=== PATIENT | male | born 1960 | race Hispanic/Latino ===

== ENCOUNTER 2019-08-20 09:00 | Inpatient (IN) | payer OTHER ==
[~2019-08-20] VITALS: Ht 177.8 cm; Wt 104.6 kg
[2019-08-20 10:51] VITALS: BP 108/71
[2019-08-20] MEDS ORDERED: APIX5TAB PO (11:51)
[2019-08-20] MEDS ORDERED: MVIT PO (11:51)
[2019-08-20] MEDS ORDERED: FENO145T26 PO (11:51)
[2019-08-20] MEDS ORDERED: CETI10TA86 PO (11:51)
[2019-08-20] MEDS ORDERED: ATOR10TA69 PO (11:51)
[2019-08-20] MEDS ORDERED: NIAC500C3 PO ×2 (11:51)
[2019-08-20] MEDS ORDERED: SELE200C PO (11:51)
[2019-08-20] MEDS ORDERED: FISH1CAP27 PO ×2 (11:51)
[2019-08-22] VITALS (22 sets, daily range): BP systolic 99–130; BP diastolic 58–83
[2019-08-22] MEDS ORDERED: LACTATED RINGERS 1000ML 1,000 ML IV ONE (08:24)
[2019-08-22] MEDS: CEFAZOLIN SODIUM 1 GM VIAL ONE ×4 (08:33→15:16)
[2019-08-22] MEDS ORDERED: METOCLOPRAMIDE 10 MG/2 ML VIAL ONE (08:45)
[2019-08-22] MEDS ORDERED: ACETAMINOPHEN EXTRA STRENGTH 500 MG TABLET ONE (08:45)
[2019-08-22] MEDS ORDERED: KETOROLAC TROMETHAMINE 15MG/ML ONE (08:46)
[2019-08-22] MEDS ORDERED: CELECOXIB 200 MG CAP ONE (08:46)
--- NOTE | 2019-08-22 09:02 | NUR ---
POTENTIAL FOR INFECTION: SHAVING TO LEFT KNEE / LEFT LEG PER JORGE ALBERTO ROY FOLLOWED BY WIPING WITH HYACINTH: 2% CHLORHEXIDINE GLUCONATE CLOTH PATIENTS PRE-OP SKIN PREP.
[2019-08-22] MEDS ORDERED: CELECOXIB 200 MG CAP PO SCH (09:30)
[2019-08-22] MEDS ORDERED: TRANEXAMIC ACID 1000MG/10ML IJ SCH (09:30)
[2019-08-22] MEDS ORDERED: METOCLOPRAMIDE 10 MG/2 ML VIAL IVP SCH (09:30)
[2019-08-22] MEDS ORDERED: ACETAMINOPHEN EXTRA STRENGTH 500 MG TABLET PO SCH (09:30)
[2019-08-22] MEDS ORDERED: ONDANSETRON HCL 4 MG/2 ML VIAL ONE (12:07)
[2019-08-22] MEDS ORDERED: LIDOCAINE PF 2% 5ML ABBOJECT ONE (12:07)
[2019-08-22] MEDS ORDERED: SUCCINYLCHOLINE 200MG/10ML SYR ONE (12:07)
[2019-08-22] MEDS ORDERED: NEOSTIGMINE 5MG/5ML SYR IV ONE (12:08)
[2019-08-22] MEDS ORDERED: DEXAMETHASONE SOD PHOSPHATE 10MG/ML 1ML VIAL ONE (12:08)
[2019-08-22] MEDS ORDERED: MIDAZOLAM HCL 1 MG/ML 2ML VIAL ONE (12:08)
[2019-08-22] MEDS ORDERED: GLYCOPYRROLATE 1 MG/5 ML SYRINGE ONE ×2 (12:08→15:31)
[2019-08-22] MEDS ORDERED: PROPOFOL 10 MG/ML 20ML VIAL IV ONE (12:08)
[2019-08-22] MEDS ORDERED: ROCURONIUM 10MG/1ML SYR 10 MG/ML ML ONE (12:09)
[2019-08-22] MEDS ORDERED: FENTANYL CITRATE PF 50 MCG/1 ML 2ML VIAL ONE ×3 (12:09→15:30)
[2019-08-22] MEDS ORDERED: ROPIVACAINE 0.5% 5MG/ML 30ML IJ ONE (12:11)
[2019-08-22] MEDS ORDERED: TRANEXAMIC ACID 1000MG/10ML ONE (14:44)
[2019-08-22] MEDS ORDERED: KETOROLAC TROMETHAMINE 15MG/ML IV PRN (15:30)
[2019-08-22] MEDS ORDERED: OXYCODONE HCL 5 MG TAB PO PRN (15:30)
[2019-08-22] MEDS ORDERED: TRAMADOL HCL 50 MG TABLET PO PRN (15:30)
[2019-08-22] MEDS ORDERED: DiphenhydrAMINE HCL 50 MG/ML VIAL IVP PRN (15:30)
[2019-08-22] MEDS ORDERED: POTASSIUM CHLORIDE 20MEQ/100ML 100 ML IV PRN (15:30)
[2019-08-22] MEDS ORDERED: FERROUS FUMARATE 324 MG TABLET PO PRN (15:30)
[2019-08-22] MEDS ORDERED: POTASSIUM CHLORIDE 20 MEQ ERTAB PO PRN (15:30)
[2019-08-22] MEDS ORDERED: POTASSIUM CHLORIDE 10% ELIXIR 20 MEQ/15 ML UDCUP PO PRN (15:30)
[2019-08-22] MEDS ORDERED: ONDANSETRON HCL 4 MG/2 ML VIAL IVP PRN (15:30)
[2019-08-22] MEDS ORDERED: CALCIUM CARBONATE 500 MG TABLET PO PRN (15:30)
[2019-08-22] MEDS ORDERED: LIDOCAINE HCL-MPF 1% 2ML VIAL IV PRN (15:30)
[2019-08-22] MEDS: ACETAMINOPHEN EXTRA STRENGTH 500 MG TABLET PO SCH ×2 (15:30→20:27)
[2019-08-22] MEDS ORDERED: MEPERIDINE-PF 25 MG/ML SYG ONE (16:04)
--- NOTE | 2019-08-22 17:02 | NUR ---
[facility] INITIAL & REFERRAL MET W/ PATIENTS FOR DISCHARGE PLANNING-- PAINTER HERRERA W SPOU[facility] WHO WILL PROVIDE TRANSPORT. [facility]IENT GOES TO [facility]- PREVIOUSLY INDEPENDENT, NO DME, DOS NOT DRIVE, DCP IS HOME , TIFFANIE SIGNED FOR DME AND HH THAT [facility] WILL SENT UP, WILL SEND REFERRAL AFTER PT NOTES ARE DONE Addendum: 08/23/19 at 1633 by DILCIA COSME RN CM Amended: Links added.
[2019-08-22] MEDS: SODIUM CHLORIDE 0.9% 1000ML 1,000 ML IV SCH (17:15)
[2019-08-22] MEDS: OXYCODONE HCL 5 MG TAB PO PRN ×2 (17:15→23:37)
[2019-08-22] MEDS ORDERED: POTASSIUM CHLORIDE 20MEQ/100ML 100 ML IV ONE (18:34)
[2019-08-22] MEDS: ASPIRIN 81MG TAB.CHEW PO SCH (20:24)
[2019-08-22] MEDS: CEFAZOLIN SODIUM 1 GM VIAL IVP SCH (20:25)
[2019-08-22] MEDS: FAMOTIDINE 20MG TAB 20 MG TAB PO SCH (20:26)
[2019-08-22] MEDS: CELECOXIB 200 MG CAP PO SCH (20:26)
[2019-08-22] MEDS: PREGABALIN 25 MG CAP PO SCH (20:26)
[2019-08-22] MEDS ORDERED: NON-FORMULARY MEDICATION 1 EACH (Cetirizine HCl 10 MG) PO SCH (21:00)
[2019-08-22] MEDS: CETIRIZINE HCL 5 MG TABLET PO SCH (21:00)
[2019-08-22] MEDS ORDERED: NIACIN 1000 MG PO SCH (21:00)
[2019-08-22] MEDS: NIACIN 1000 MG PO SCH (21:00)
--- NOTE | 2019-08-22 21:00 | NUR ---
ACTIVITY SAT PATIENT UP AT BEDSIDE, WITH TOES TOUCHING ON FLOOR X 10 MINUTES, TOLERATED WELL, BACK TO BED, TEACH PATIENT PLAN OF CARE AND EXPECTED OUTCOME, PATIENT VERBALIZES UNDERSTANDING VIA TEACH BACK
[2019-08-23] MEDS: SODIUM CHLORIDE 0.9% 1000ML 1,000 ML IV SCH ×2 (00:18→11:17)
[2019-08-23 03:30] VITALS: BP 103/66
[2019-08-23 04:14] LABS: HEMATOCRIT 33.7 % (42-54); MEAN CORPUSCULAR HEMOGLOBIN 29.5 pg (27.0-33.0); MEAN CORPUSCULAR HGB CONC 33.2 g/dL (32.0-36.0); MEAN CORPUSCULAR VOLUME 88.7 fL (79-99); PLATELET COUNT (AUTO) 219 K/uL (130-400); WHITE BLOOD COUNT (AUTO) 14.3 K/uL (4.8-10.8)
[2019-08-23] MEDS: CEFAZOLIN SODIUM 1 GM VIAL IVP SCH (04:30)
[2019-08-23] MEDS: ACETAMINOPHEN EXTRA STRENGTH 500 MG TABLET PO SCH ×3 (06:44→23:14)
[2019-08-23 08:08] VITALS: BP 96/65
[2019-08-23] MEDS: PREGABALIN 25 MG CAP PO SCH ×2 (08:18→19:53)
[2019-08-23] MEDS: APIXABAN 5 MG TABLET PO SCH ×2 (08:18→19:53)
[2019-08-23] MEDS: CELECOXIB 200 MG CAP PO SCH ×2 (08:18→19:53)
[2019-08-23] MEDS: POLYETHYLENE GLYCOL 3350 17 GM POWD.PACK PO SCH (08:20)
[2019-08-23] MEDS: ASPIRIN 81MG TAB.CHEW PO SCH ×2 (08:20→19:53)
[2019-08-23] MEDS: NIACIN 500 MG PO SCH (08:20)
[2019-08-23] MEDS: FAMOTIDINE 20MG TAB 20 MG TAB PO SCH ×2 (08:21→19:17)
[2019-08-23] MEDS ORDERED: FENOFIBRATE NANOCRYSTALLIZED 145 MG TAB PO SCH (09:00)
[2019-08-23] MEDS ORDERED: NIACIN 500 MG PO SCH (09:00)
[2019-08-23 11:27] VITALS: BP 99/58
--- NOTE | 2019-08-23 16:25 | NUR ---
spoke at length on phone to yue at [place] RE dressing change orders [place] required ++ documentation re dressing change orders, sent and verified with Yue. should have HH name by tomorrow am Addendum: 08/23/19 at 1627 by DILCIA COSME RN CM Amended: Links added.
[2019-08-23 16:38] VITALS: BP 98/60
[2019-08-23 19:43] VITALS: BP 102/64
[2019-08-23] MEDS ORDERED: ATORVASTATIN CALCIUM 10 MG TABLET ONE (19:51)
[2019-08-23] MEDS: CETIRIZINE HCL 5 MG TABLET PO SCH (19:53)
[2019-08-23] MEDS: NIACIN 1000 MG PO SCH (19:53)
[2019-08-23] MEDS ORDERED: ATORVASTATIN CALCIUM 10 MG TABLET PO SCH (21:00)
[2019-08-23] MEDS: OXYCODONE HCL 5 MG TAB PO PRN (21:09)
[2019-08-23 23:04] VITALS: BP 117/67
[2019-08-24 03:45] VITALS: BP 97/66
[2019-08-24] MEDS: ACETAMINOPHEN EXTRA STRENGTH 500 MG TABLET PO SCH ×2 (05:48→17:08)
[2019-08-24 08:00] VITALS: BP 104/61
[2019-08-24] MEDS: OXYCODONE HCL 5 MG TAB PO PRN ×2 (08:06→12:26)
[2019-08-24] MEDS: FAMOTIDINE 20MG TAB 20 MG TAB PO SCH (09:00)
[2019-08-24] MEDS: NIACIN 500 MG PO SCH (09:00)
[2019-08-24] MEDS: PREGABALIN 25 MG CAP PO SCH (09:17)
[2019-08-24] MEDS: APIXABAN 5 MG TABLET PO SCH (09:18)
[2019-08-24] MEDS: POLYETHYLENE GLYCOL 3350 17 GM POWD.PACK PO SCH (09:18)
[2019-08-24] MEDS: ASPIRIN 81MG TAB.CHEW PO SCH (09:18)
[2019-08-24] MEDS: CELECOXIB 200 MG CAP PO SCH (09:18)
[2019-08-24 12:00] VITALS: BP 117/73
--- NOTE | 2019-08-24 13:00 | NUR ---
DC PLANNING WITH JOEY FROM [place] SPOKE TO [facility] FROM [facility]- [facility] TODAY SHE STATED SHE EXPECTED TO HAVE THE HH NAME BY THIS AFTERNOON, BUT THE DME "YOU WILL PROBABLY HAVE TO LOAN YOUR WKR TO THE PATIENT' 'THE [facility] MD WAS WORKING ON THE REFERAL THIS AM, BUT HE MAY NOT HAVE IT READY BY 430, HE HAS TO SEE PATIENTS TOO" SPOUSE ASKING FOR THE SCRIPTS TIMELY SO THAT SHE CAN GO TECHNICAL OPERATIONS MANAGER AT THE [facility]. RELAYED THE INFO THAT THE PATIENT MAY HAVE TO BE GIVEN OUR WKR FOR THE WEEKEND, AND THIS REQUEST. NICK AWARE AND WILL PASS ON TO DR. PLEITEZ
[2019-08-24] MEDS ORDERED: HYDR-4457 PO (13:28)
[2019-08-24 16:00] VITALS: BP 114/73
--- NOTE | 2019-08-24 17:15 | NUR ---
[facility] ATTEMPTED [facility] TO CALL [facility] BETWEEN 4 PM AND 1700. AT 1700 WENT TO ROOM TO TELL THE PATIENT THAT I DID NOT HAVE A HH NAME FOR THEM WAS ADVISED BY PATIENT THAT [facility] HAD CALLED THEM TO LET THEM KNOW THAT THEY WOULD BE SERVICING THE PATIENT. ATTEMPTED AGAIN TO CALL [facility]- JOEY, NO ANSWER. CALL TO [facility], CONFIRMED THEY WOULD SEE THE PATIENT. REMINDED THE PT THAT THE DME WOULD TAKE UNTIL TUESDAY TO BE PROCESSED, BUT THEY COULD BORROW THE WALKER.
--- NOTE | 2019-08-24 18:43 | NUR ---
As per pt admission database, pt already rec'd flu shot this season. Addendum: 08/24/19 at 1847 by JOEY BILLINGSLEY RN RN Amended: Links added.
--- NOTE | 2019-08-24 19:06 | NUR ---
DISCHARGE DISCHARGE INSTRUCTIONS GIVEN TO PATIENT AND PATIENTS , BOTH VERBALIZE UNDERSTANDING VIA TEACH BACK
--- NOTE | 2019-08-24 19:06 | NUR ---
DISCHARGE PATIENT/SPOUSE GIVEN DISCHARGE INSTRUCTIONS VIA TEACH BACK BY KRISHNA FISHER. 20G PIV TO LFA, TIP INTACT. RX GIVEN TO PATIENT PRIOR TO DISCHARGE. SPOUSE FILLED RX FOR NORCO. DRESSING TO LEFT KNEE TO BE REMOVED ON 08/29/19. REPORT GIVEN TO KRISHNA WOOD FROM [facility]. PATIENT TO FOLLOW UP DR. PLEITEZ ON 09/12/19 AT 1015. PATIENT STABLE AT THIS TIME.
--- NOTE | 2019-08-24 19:25 | NUR ---
DISCHARGE DISCHARGE HOME VIA W/C ACCOMPANIED BY PATIENTS , PAIN LEVEL UPON DISHCARGE 0, DRESSING LEFT KNEE WITH SEUN DRESSING D/I WITH NEGATIVE PRESSURE FLASHING GREEN
[2019-08-24] MEDS ORDERED: FENOFIBRATE NANOCRYSTALLIZED 145 MG TAB PO SCH (21:00)
[2019-08-25] MEDS ORDERED: BISACODYL 10 MG SUPP.RECT RC PRN (15:30)
== END 2019-08-24 19:27 | disposition home health service (06) | DRG 470 ==
LOC: DAHIP 08-22 07:08 → 4BH 08-22 16:41
PROVIDERS: ADMIT Orthopaedic Surgery; ATTEND Orthopaedic Surgery
PROC: 0SRD0J9 Replacement of Left Knee Joint with Synthetic Substitute, Cemented, Open Approach (ICD-10-PCS; principal; 2019-08-22 13:00)
PROC: 3E0T3BZ Introduction of Anesthetic Agent into Peripheral Nerves and Plexi, Percutaneous Approach (ICD-10-PCS; 2019-08-22 13:00)
DX: M17.12 Unilateral primary osteoarthritis, left knee (principal); E78.5 Hyperlipidemia, unspecified; G47.00 Insomnia, unspecified; G89.29 Other chronic pain; Z83.3 Family history of diabetes mellitus; Z86.711 Personal history of pulmonary embolism; Z87.891 Personal history of nicotine dependence; Z80.9 Family history of malignant neoplasm, unspecified; Z79.01 Long term (current) use of anticoagulants
CPT/HCPCS: 36415; 80048; 85027; 87641; 96374; 96375; 97039; G0378; J0330; J0690; J1100; J1885; J2001; J2175; J2250; J2405; J2704; J2710; J2765; J2795; J3010; J3480; J3490; J7030; J7120

== ENCOUNTER → 2020-02-27 | Outpatient (CLI) | payer OTHER ==
[~2020-02-27] MED LIST: APIX5TAB PO; ATOR10TA69 PO; CETI10TA86 PO; FENO145T26 PO; FISH1CAP27 PO; HYDR-4457 PO; MVIT PO; NIAC500C3 PO; SELE200C PO
== END | disposition home or self-care (01) ==
LOC: RAH 10:03
PROVIDERS: ATTEND Urology
DX: N32.89 Other specified disorders of bladder (principal); R31.29 Other microscopic hematuria
CPT/HCPCS: 76770

== ENCOUNTER → 2020-04-04 | Outpatient (CLI) | payer OTHER | END | disposition home or self-care (01) | LOC: RAH 12:37 | PROVIDERS: ATTEND Urology | DX: N20.0 Calculus of kidney (principal); R18.8 Other ascites | CPT/HCPCS: 74176 ==

== ENCOUNTER → 2020-04-18 | Outpatient (CLI) | payer OTHER | END | disposition home or self-care (01) | LOC: RAH 12:43 | PROVIDERS: ATTEND Urology | DX: N20.0 Calculus of kidney (principal); M47.815 Spondylosis without myelopathy or radiculopathy, thoracolumbar region | CPT/HCPCS: 74018 ==

== ENCOUNTER → 2021-03-30 | Outpatient (CLI) | payer OTHER ==
[~2021-03-30] MED LIST changes: +NIAC500C13 PO; -NIAC500C3 PO
== END | disposition home or self-care (01) ==
LOC: RAH 12:11
PROVIDERS: ATTEND Urology
DX: N20.0 Calculus of kidney (principal); M47.816 Spondylosis without myelopathy or radiculopathy, lumbar region
CPT/HCPCS: 74018; 76100

== ENCOUNTER 2021-10-06 05:30 | Day surgery (SDC) | payer OTHER ==
[2021-10-01 13:35] LABS: HEMATOCRIT 42.3 % (42-54); MEAN CORPUSCULAR HEMOGLOBIN 28.8 pg (27.0-33.0); MEAN CORPUSCULAR HGB CONC 31.7 g/dL (32.0-36.0); RED BLOOD CELL COUNT(AUTO) 4.65 MIL/uL (4.50-6.20); RED CELL DISTRIBUTION WIDTH 13.7 % (11.0-15.5); WHITE BLOOD COUNT (AUTO) 8.4 K/uL (4.8-10.8)
[2021-10-01 13:47] LABS: INR 1.07 (0.85-1.15); PROTHROMBIN TIME 11.6 SEC (9.6-11.6)
[2021-10-01 13:48] LABS: ALBUMIN 3.7 g/dL (3.5-5.0); BILIRUBIN,TOTAL 0.4 mg/dL (0.2-1.0); POTASSIUM 3.7 mmol/L (3.5-5.1); TOTAL PROTEIN, SERUM 7.6 g/dL (6.0-8.3)
[2021-10-05 10:20] VITALS: BP 113/69
[2021-10-06] VITALS (17 sets, daily range): BP systolic 102–118; BP diastolic 62–77
[~2021-10-06] VITALS: Ht 180.3 cm; Wt 103.3 kg
[~2021-10-06 05:30] MED LIST changes: -CETI10TA86 PO; +CETI10TA87 PO; -HYDR-4457 PO; +MECL-160 PO; +TAMS-1 PO
[2021-10-06] MEDS ORDERED: LACTATED RINGERS 1000ML 1,000 ML IV ONE (05:53)
[2021-10-06] MEDS ORDERED: FENTANYL CITRATE PF 50 MCG/1 ML 2ML VIAL ONE (06:34)
[2021-10-06] MEDS ORDERED: MIDAZOLAM HCL 1 MG/ML 2ML VIAL ONE (06:34)
[2021-10-06] MEDS ORDERED: LIDOCAINE PF 100MG/5ML (2%) SYRINGE 5ML ONE (06:35)
[2021-10-06] MEDS ORDERED: PROPOFOL 10 MG/ML 20ML VIAL IV ONE (06:35)
[2021-10-06] MEDS ORDERED: ROCURONIUM 10MG/1ML SYR 10 MG/ML ML ONE (06:35)
[2021-10-06] MEDS: CEFAZOLIN SODIUM 1 GM VIAL ONE ×2 (06:45→07:14)
[2021-10-06] MEDS ORDERED: ONDANSETRON 4MG INJ ONE (07:08)
[2021-10-06] MEDS ORDERED: EPHEDRINE SULFATE 50 MG/ML AMPULE ONE (07:12)
[2021-10-06] MEDS ORDERED: NEOSTIGMINE 5MG/5ML SYR IV ONE (07:43)
[2021-10-06] MEDS ORDERED: GLYCOPYRROLATE 1 MG/5 ML SYRINGE ONE (07:43)
[2021-10-06] MEDS ORDERED: LACTATED RINGERS 1000ML 1,000 ML IV SCH (08:00)
[2021-10-06] MEDS ORDERED: CEFAZOLIN SODIUM 1 GM VIAL IVP ONE (08:00)
== END 2021-10-06 09:30 | disposition home or self-care (01) ==
LOC: DAH 05:30
PROVIDERS: ATTEND Urology
DX: N20.0 Calculus of kidney (principal); E11.9 Type 2 diabetes mellitus without complications; E78.5 Hyperlipidemia, unspecified; R31.9 Hematuria, unspecified; Z79.899 Other long term (current) drug therapy; Z96.659 Presence of unspecified artificial knee joint; Z20.822 Contact with and (suspected) exposure to COVID-19
CPT/HCPCS: 36415; 50590; 71046; 74018; 80053; 85027; 85610; 85730; 87088; 87635; 93005; A4215; A4221; A4222; A4223; A4663; A6260; C9803; J0690; J2001; J2250; J2405; J2704; J2710; J3010; J3490 ×2; J7030; J7120

== ENCOUNTER → 2021-10-19 | Outpatient (CLI) | payer OTHER | END | disposition home or self-care (01) | LOC: RAH 08:46 | PROVIDERS: ATTEND Urology | DX: N20.0 Calculus of kidney (principal); M47.815 Spondylosis without myelopathy or radiculopathy, thoracolumbar region | CPT/HCPCS: 74018; 76100 ==

== ENCOUNTER 2024-12-18 06:32 | Day surgery (SDC) | payer OTHER ==
[2024-12-11 11:59] LABS: IMMATURE GRANULOCYTE ABSOLUTE 0.02 K/uL (0-1); NUCLEATED RED BLOOD CELLS 0.0 % (0.0-0.19); PLATELET COUNT (AUTO) 237 K/uL (130-400); RED BLOOD CELL COUNT(AUTO) 4.68 MIL/uL (4.50-6.20); RED CELL DISTRIBUTION WIDTH 13.7 % (11.0-15.5); WHITE BLOOD COUNT (AUTO) 9.0 K/uL (4.8-10.8)
[2024-12-11 12:11] LABS: CREATININE 1.0 mg/dL (0.5-1.3); GLOMERULAR FILTR. RATE CALC 83.0 mL/min (>90); GLUCOSE,RANDOM 110.0 mg/dL (70-105); SODIUM SERUM 141.0 mmol/L (136-145); UREA NITROGEN, BLOOD 18.0 mg/dL (7-18)
[2024-12-11 12:18] VITALS: BP 109/63; PULSE 77; RESP 17; TEMP 97.9
--- NOTE | 2024-12-11 16:39 | NUR ---
REPORT CALLED DR PLEITEZ TO CONFIRM LAST DOSE OF ELIQUIS SINCE HIS STATED 3 DAYS PRIOR AND BOTTOM STAINER STATED 2 DAYS. RECEIVED ORDERS FOR LAST DOSE TO BE 12/15/24 AM DOSE. PT NOTIFIED AND VOICED UNDERSTANDING
[2024-12-18] VITALS (17 sets, daily range): BP systolic 97–116; BP diastolic 56–75; PULSE 57–66; RESP 11–18; TEMP 97.1–97.6
[~2024-12-18] VITALS: Ht 180.3 cm; Wt 99.7 kg
[~2024-12-18 06:32] MED LIST changes: +ACET-66 PO; -ATOR10TA69 PO; -CETI10TA87 PO; +DICL100G60 TP; +LID5O TP; +MAGN400T53 PO; -MECL-160 PO; +METF-446 PO; -NIAC500C13 PO; -SELE200C PO; +SIMV40TA59 PO; -TAMS-1 PO; +TAMS-55 PO
[2024-12-18] MEDS ORDERED: GABAPENTIN 300 MG CAPSULE ONE (07:16)
[2024-12-18] MEDS ORDERED: FAMOTIDINE 20MG VIAL IV ONE (07:17)
[2024-12-18] MEDS: 0.9%NACL 1000ML 1,000 ML IV ONE (07:22)
[2024-12-18] MEDS ORDERED: LIDOCAINE PF 100MG/5ML (2%) SYRINGE 5ML ONE (07:33)
[2024-12-18] MEDS ORDERED: NEOSTIGMINE METHYLSULFATE 1MG/ML IV ONE (11:05)
[2024-12-18] MEDS ORDERED: GLYCOPYRROLATE 0.2 MG/ML 5 ML VIAL ONE (11:05)
[2024-12-18] MEDS ORDERED: HYDR-4060 PO (11:18)
--- NOTE | 2024-12-18 11:34 | OP ---
Operative Note: DATE OF PROCEDURE: 12/18/24 SURGEON: MEREDITH PLEITEZ MD AERONAUTICAL ENGINEERING TECHNOLOGIST: [Pascual Neal CFA] ANESTHESIA: [General anesthesia plus regional block] ANESTHESIOLOGIST/SENIOR ENVIRONMENTAL PRACTICE LEADER: [Kiersten Bullock CRNA] PREOPERATIVE DIAGNOSIS: [Left shoulder incomplete versus complete supraspinatus tear. Biceps synovitis, subacromial impingement, acromioclavicular joint arthritis] POSTOPERATIVE DIAGNOSIS: [Same] IMPLANTS: [[employer] 6.5 peek anchor. Arthrex 4.25 anchor.] PROCEDURE: [Left shoulder arthroscopic rotator cuff tear repair, subacromial decompression, distal clavicle resection.] ESTIMATED BLOOD LOSS: [20 mL] INDICATIONS: [The patient is a 64-year-old male with a history of severe pain to the left shoulder that has not responded to conservative treatment. The patient's MRI showed the presence of an near complete rotator cuff tear biceps synovitis as well as a distal clavicle arthritis and impingement. The patient is brought to the operating room for arthroscopic evaluation, rotator cuff tear repair, subacromial decompression distal clavicle resection, procedure that the patient understood as well as the risks involved, benefits and possible complications and agreed to sign the consent form] DESCRIPTION OF PROCEDURE: [After adequate general anesthesia was achieved and regional block obtained the patient was placed in the beach chair position and the left upper extremity was prepped and draped in the usual manner. After identification of the bony landmarks we proceeded to make a small incision in the posterior aspect of the shoulder subacromial area through the skin followed by blunt dissection with the arthroscopic trocar entering into the shoulder joint removing the trocar and applying the arthroscope into the sheath. After inflating the joint with fluid evaluation of the joint revealed normal subscapularis, biceps tendon, labrum, glenohumeral joint surfaces. The supraspinatus showed changes compatible with a at least a partial intra- articular tear that involved approximately 50% of the insertion site and the infraspinatus was normal. We then proceeded to remove the arthroscope from the joint and after reapplying the trocar into the sheath we redirected it and inserted it into the subacromial space. Once again we switch the trocar for the arthroscope and evaluation of the subacromial space revealed significant amount of bursal tissue and a second incision was made in the brook lateral aspect of the subacromial area through the skin and then with a blunt trocar we proceeded to enter this area followed by application of the electrocautery proceeding then to remove most of the bursal tissue opening the subacromial space noticing that there was obvious impingement due to the acromial hypertrophy and the acromioclavicular joint arthrosis present. We then made a third incision anteriorly at the level of the posterolateral subacromial space t through the skin and then bluntly we entered with a cannula into the subacromial area at the level of the acromioclavicular joint. Through this incision we then inserted a mild diameter cannula. With the use of the shaver and through the lateral cannula we proceeded to continue cleaning the subacromial area from all the bursal tissue and we identified the rotator cuff which was noted to be intact in the exterior. For this reason we proceeded then to reinsert the arthroscope in the joint and a relocating the partial tear in the supraspinatus we proceeded to apply a needle through lateral aspect of the shoulder exiting into the center of the tear and then through this needle we proceeded to thread a 1. Prolene suture. Another incision was then placed in the anterior aspect of the shoulder just lateral to the coracoid process and through this incision we proceeded then to apply a blue cannula into the anterior aspect of the shoulder through the interval space. Then with the use of the electrocautery we proceeded then to clean up the tear internally and grab the suture which was brought through the anterior cannula and then the two ends of the suture were clamp. We then proceeded to apply a again the arthroscope in the posterior incision and we visualized the suture and with the use of the electrocautery we proceeded to cut through the surface of the supraspinatus at this level making the supraspinatus a complete tear which measure approximately a 1-1.5 cm. Then through the the other lateral portal we proceeded to apply a green cannula. Once we cleared the bursal tissue from the tear we proceeded then to use the shaver to clean the footprint of the supraspinatus insertion and then proceeded to repair the tear through the lateral portal we then apply a horizontal mattress stitch to the supraspinatus tendon with a tape suture The 2 ends of the suture were then threaded into a 6.5 peek multi-fix anchor from [employer] and then we brought it through the cannula into the superolateral aspect of the tuberosity and Into the bone while holding tension and reducing the tear down to its insertion site until it reached the threaded portion and we then proceeded to screw the rest of the anchor into the bone. Once the anchor was buried we then proceeded to disengage the chipper and cut the ends of the suture completing the repair. A small area in the anterior aspect of the repair was noted to be still open and a 4.25 mm anchor was then inserted anterior to the previous anchor and one end of the suture from the anchor was then passed through the muscle and then we tied to itself bringing the muscle down to the bone. Evaluation of the repair revealed that this has been adequate. At this point we proceeded then to start the decompression with the use of the bur starting with the subacromial area removing the tip of the acromiom first and then proceeding posteriorly and once completed we then pay attention to the distal end of the clavicle removing the inferior two thirds, switching then the bur to the anterior portal removing the superior third through this side. Once the distal clavicle was resected we then proceeded to remove the debris from the subacromial area then the fluid and the arthroscope. The incisions were then closed with 2-0 Monocryl inverted stitches followed by application of Dermabond to seal the incisions and then they were covered with a small Telfa dressings and OpSite's. The drapes were then removed and the patient was placed in an arm sling. The bed was placed in the supine position and the patient was transferred to a stretcher and taken to recovery room for follow-up by anesthesia. There were no complications during the procedure.] MEREDITH PLEITEZ MD Dec 18, 2024 11:34
== END 2024-12-18 13:30 | disposition home or self-care (01) ==
LOC: DAH 06:32
PROVIDERS: ATTEND Orthopaedic Surgery
DX: M75.42 Impingement syndrome of left shoulder (principal); M75.122 Complete rotator cuff tear or rupture of left shoulder, not specified as traumatic; M65.912 Unspecified synovitis and tenosynovitis, left shoulder; M19.012 Primary osteoarthritis, left shoulder; M25.819 Other specified joint disorders, unspecified shoulder; M25.512 Pain in left shoulder; E78.5 Hyperlipidemia, unspecified; E11.9 Type 2 diabetes mellitus without complications; Z79.899 Other long term (current) drug therapy; Z79.84 Long term (current) use of oral hypoglycemic drugs; Z87.898 Personal history of other specified conditions
CPT/HCPCS: 80048; 85025; 36415; 29827; 29824; 29826; 64415; 82948 ×2; C1713 ×3; A4663; J7030 ×2; A4565; J3490 ×5; J3010; J1100; J0171; J2003; J2704; J2405; J2710; J2795; J0690; A6204; A4930 ×2; A5120; A4215; A4213; A4222; A4221; A4216; A4223 ×2

== ENCOUNTER → 2025-02-15 | Outpatient (CLI) | payer OTHER ==
[~2025-02-15] MED LIST changes: -FISH1CAP27 PO; +HYDR-4060 PO
--- NOTE | 2025-02-16 11:30 | HMCIMG ---
CT ABD/PEL WO CON RENAL/APPY CLINICAL HISTORY: Calculus of kidney COMPARISON: None TECHNIQUE: Sequential axial images of abdomen and pelvis without contrast with sagittal and coronal reconstructions. FINDINGS: The visualized portions of the lungs and heart are normal. There is limited evaluation of the solid and hollow visceral organs without the use of IV contrast. Liver has a grossly normal noncontrasted appearance. There is a small cyst seen in the right lobe of the liver. The gallbladder demonstrate a calculus in the dependent portion of the gallbladder lumen. ] [surgically absent]. There is no intra or extrahepatic ductal dilatation. The pancreas, spleen and adrenal glands are normal. Kidneys are normal in position. There are small nonobstructing calculi 1 mm in the lower pole of the left kidney and also in the right lower pole the right kidney. No hydronephrosis, perinephric inflammation. The ureters are normal in course and caliber. The bladder is normal. Pelvic structures shows [normal prostate and seminal vesicle.]. No adenopathy. No free fluid. There is no colonic wall thickening or pericolonic inflammation. There is no free air in the abdomen or the pelvis. There is an umbilical hernia with properitoneal fat The appendix [is located in the right lower quadrant and looks normal]. The small bowel, mesentery, gastroesophageal junction, stomach and duodenum are normal. No aneurysmal dilatation of the aorta. No pathologic adenopathy. The osseous structures look normal. There is disc disease with vacuum phenomenon at L5-S1. The soft tissues look normal. IMPRESSION: 1. No acute process in the CT of the abdomen and pelvis without intravenous contrast 2. Nonobstructing calculi seen in both kidneys more pronounced on the left as compared to the right.. 3. Disc disease with vacuum phenomena at L5-S1. 4. Cholelithiasis 5. Small umbilical hernia with properitoneal fat
== END | disposition home or self-care (01) ==
LOC: RAH 12:33
PROVIDERS: ATTEND Urology
DX: N20.0 Calculus of kidney (principal); K80.20 Calculus of gallbladder without cholecystitis without obstruction; K42.9 Umbilical hernia without obstruction or gangrene; K76.89 Other specified diseases of liver
CPT/HCPCS: 74176